=== PATIENT | female | born 1945 | race Caucasian/White ===

== ENCOUNTER → 2016-10-11 | Outpatient (CLI) | payer MEDICARE, OTHER ==
[~2016-10-11] MED LIST: AMLODIPINE BESYL5 MG PO; BOSWELLIA SERRAT1 GM MC; BOSWELLIA SERRAT1 GM PO; CO Q-10200 MG PO; COENZYME Q10200 M2 PO; COLLAGEN HYDROLY1 GM MC; COLLAGEN HYDROLY1 GM PO; CURCUMIN1 GM MC; CURCUMIN1 GM PO; MAGNESIUM500 MG PO; MULTI VITAMIN1 EACH PO; NONI; OMEGA POWER 11050 MG PO; PROBIOTIC1 EAC1 PO; PROBIOTIC1 EAC4 PO; VITAMIN D35000 UNIT PO
--- NOTE | ~2016-10-11 | BD1 ---
[facility] A Service of [facility] & [facility] RADIOLOGY TEXT RESULTS PATIENT: JADA PEÑALOZA LOCATION: [facility] : 45 UNIT #: [id number] AGE: [address]: Nabor Syed MD SEX: F ORDER DR: [id number] [facility] [address] [facility] [place], [place] [address] [id number] O MR#: [id number] Acc #: [id number] NAME: JADA PEÑALOZA : 1945 SEX: F STUDY DATE/TIME: 10/11/2016 14:17 UNIT: [facility] ROOM: STUDY DESCRIPTION: BD Dexa Bone Dens 1+ Site Attending Physician: Nabor Syed M.D. Referring Physician: Nabor Syed M.D. Ordering Physician: Nabor Syed M.D. Primary Care Physician: Nabor Syed M.D. MEDICAL IMAGING REPORT This report is preliminary unless electronic signature is present EXAM DXA scan, 10/11/2016. HISTORY Status post menopause with no hormone replacement therapy. Osteopenia. Hysterectomy at age 45 with removal of both ovaries. Rheumatoid arthritis. Hypertension with blood pressure medication for 1-1/2 years. FINDINGS Bone mineral density in the lumbar spine from L1 through L4 is 1.119 g/cm2 which is 0.7 standard deviations above the mean when compared to the young adult reference population which is within the range of normal. This is 2.8 standard deviations above the mean when compared to the age-matched population. Bone mineral density in the left femoral neck was 0.666 g/cm2 which is 1.6 standard deviations below the mean when compared to the young adult reference population which is characteristic of osteopenia. This is 0.2 standard deviations above the mean when compared to the age-matched population. IMPRESSION Bone mineral density in the lumbar spine within the range of normal and within the left hip characteristic of osteopenia. Dictated by... Armin Garcia M.D. THIS IS AN ELECTRONICALLY VERIFIED REPORT Armin Garcia M.D. at 10/12/2016 2:37 PM KRT/jt TD: 10/11/2016 20:51 JOB #: [id number] [facility] A Service of [facility] & [facility] RADIOLOGY TEXT RESULTS PATIENT: JADA PEÑALOZA LOCATION: [facility] : 45 UNIT #: [id number] AGE: [address]: Nabor Syed MD SEX: F ORDER DR: MEDICAL IMAGING REPORT Page 1 of 1 COPY
== END | disposition home or self-care (01) ==
LOC: CWCC 13:57
DX: M81.0 Age-related osteoporosis without current pathological fracture (principal); M85.88 Other specified disorders of bone density and structure, other site
CPT/HCPCS: 77080